=== PATIENT | female | born 1975 | race Hispanic/Latino ===

== ENCOUNTER 2016-05-19 11:33 | Emergency (ER) | payer BC ==
[2016-05-19 11:49] VITALS: BP 140/91
--- NOTE | 2016-05-19 14:51 | Emergency Department Report ---
- General Chief Complaint: Upper Respiratory Infection Stated Complaint: CHEST PAIN Time Seen by Provider: 05/19/16 14:40 Source: patient Mode of arrival: Ambulatory Limitations: No Limitations - History of Present Illness MD Complaint: fever, cough, sore throat, sinus pain -: days(s) (2) Severity: moderate Severity scale (0 -10): 3 Quality: aching Context: sick contacts Associated Symptoms: fever, chills, myalgias, headache, nasal congestion, sore throat, cough. denies: chest pain, shortness of breath, abdominal pain, nausea , vomiting - Related Data Previous Rx's Medication Instructions Recorded Last Taken Type Acetamin/Codeine 120-12Mg/5 ml 5 ml PO QHS #60 oral.liqd 05/19/16 Unknown Rx [Tylenol/Codeine] Azithromycin [Zithromax Z-MORGAN] 250 mg PO QDAY #6 tablet 05/19/16 Unknown Rx predniSONE [Deltasone] 50 mg PO QDAY #5 tab 05/19/16 Unknown Rx Allergies Allergy/AdvReac Type Severity Reaction Status Date / Time No Known Allergies Allergy Unverified 05/19/16 11:44 ED Review of Systems ROS: Stated complaint: CHEST PAIN Other details as noted in HPI Constitutional: denies: chills, fever Eyes: denies: eye pain, eye discharge, vision change ENT: ear pain, throat pain Respiratory: denies: cough, shortness of breath, SOB with exertion, SOB at rest , wheezing Cardiovascular: denies: chest pain, palpitations Endocrine: no symptoms reported Gastrointestinal: denies: abdominal pain, nausea, diarrhea Genitourinary: denies: urgency, dysuria, discharge Musculoskeletal: denies: back pain, joint swelling, arthralgia Skin: denies: rash, lesions Neurological: denies: headache, weakness, paresthesias Psychiatric: denies: anxiety, depression Hematological/Lymphatic: denies: easy bleeding, easy bruising, swollen glands ED Past Medical Hx - Past Medical History Hx Hypertension: Yes Additional medical history: CARDIOMEGALY - Surgical History Hx Breast Surgery: Yes (FIBERCYSTIC BREASTS/ LUMPS REMOVED) Additional Surgical History: PARTIAL HYSTERECTOMY. X 1. FIBROIDS REMOVED - Social History Smoking Status: Never Smoker Substance Use Type: Alcohol - Medications Home Medications: Home Medications Medication Instructions Recorded Confirmed Last Taken Type Acetamin/Codeine 120-12Mg/5 ml 5 ml PO QHS #60 oral.liqd 05/19/16 Unknown Rx [Tylenol/Codeine] Azithromycin [Zithromax Z-MORGAN] 250 mg PO QDAY #6 tablet 05/19/16 Unknown Rx predniSONE [Deltasone] 50 mg PO QDAY #5 tab 05/19/16 Unknown Rx ED Physical Exam - General Limitations: No Limitations General appearance: alert, in no apparent distress - Head Head exam: Present: atraumatic, normocephalic - Eye Eye exam: Present: normal appearance, PERRL, EOMI - ENT ENT exam: Present: mucous membranes moist - Neck Neck exam: Present: normal inspection - Respiratory Respiratory exam: Present: normal lung sounds bilaterally. Absent: respiratory distress - Cardiovascular Cardiovascular Exam: Present: regular rate, normal rhythm. Absent: systolic murmur, diastolic murmur, rubs, gallop - GI/Abdominal GI/Abdominal exam: Present: soft, normal bowel sounds - Extremities Exam Extremities exam: Present: normal inspection - Back Exam Back exam: Present: normal inspection - Neurological Exam Neurological exam: Present: alert, oriented X3 - Psychiatric Psychiatric exam: Present: normal affect, normal mood - Skin Skin exam: Present: warm, dry, intact, normal color. Absent: rash ED Course Vital Signs 05/19/16 11:45 Temperature 97.8 F Pulse Rate 79 Respiratory 18 Rate Blood Pressure 140/91 O2 Sat by Pulse 99 Oximetry Critical care attestation.: If time is entered above; I have spent that time in minutes in the direct care of this critically ill patient, excluding procedure time. ED Disposition Clinical Impression: URI (upper respiratory infection) Disposition: DISCHARGED TO HOME OR SELFCARE Is pt being admited?: No Condition: Stable Instructions: Upper Respiratory Infection (ED) Prescriptions: Acetamin/Codeine 120-12Mg/5 ml [Tylenol/Codeine] 5 ml PO QHS #60 oral.liqd Azithromycin [Zithromax Z-MORGAN] 250 mg PO QDAY #6 tablet predniSONE [Deltasone] 50 mg PO QDAY #5 tab Referrals: CHRISTIAN DISLA DR [Other] - 3-5 Days Forms: Work/School Release Form(ED)
== END 2016-05-19 15:04 | disposition home or self-care (01) ==
LOC: ED 11:33
DX: J06.9 Acute upper respiratory infection, unspecified (principal); R51 Headache; I10 Essential (primary) hypertension; Z90.710 Acquired absence of both cervix and uterus; Z98.890 Other specified postprocedural states; Z79.899 Other long term (current) drug therapy
CPT/HCPCS: 93005; 93010; 99282

== ENCOUNTER 2020-02-24 23:31 | Emergency (ER) | payer OTHER ==
[2020-02-25 01:18] VITALS: BP 129/84
[2020-02-25] MEDS ORDERED: dexAMETHasone 20 MG/5 ML VIAL IM ONE (02:11)
[2020-02-25] MEDS ORDERED: KETOROLAC 60 MG/2 ML INJ IM ONE (02:11)
[2020-02-25] MEDS ORDERED: CYCLOBENZAPRINE 10 MG TAB PO ONE (02:11)
[2020-02-25 03:03] LABS: Bacteria,Urine 2+ /HPF (Negative); Bilirubin,Urine NEG (Negative); Blood,Urine NEG (Negative); Color,Urine Yellow (Yellow); Protein,Urine <15 mg/dL mg/dL (Negative); Urobilinogen,Urine < 2.0 mg/dL (<2.0)
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
== END 2020-02-25 03:35 | disposition home or self-care (01) ==
LOC: ED 23:31
DX: N39.0 Urinary tract infection, site not specified (principal); M62.830 Muscle spasm of back; M54.5 Low back pain; G89.29 Other chronic pain; I10 Essential (primary) hypertension; F12.10 Cannabis abuse, uncomplicated; Z90.710 Acquired absence of both cervix and uterus; Z98.890 Other specified postprocedural states; Z79.2 Long term (current) use of antibiotics; Z79.899 Other long term (current) drug therapy
CPT/HCPCS: 81001; 96372; 99283; J1100; J1885